=== PATIENT | male | born 1995 | race Caucasian/White ===

== ENCOUNTER 2020-06-20 10:52 | Emergency (ER) | payer OTHER | END 2020-06-20 12:24 | disposition home or self-care (01) | LOC: M ED 10:52 | DX: S93.402A Sprain of unspecified ligament of left ankle, initial encounter (principal); Y92.832 Beach as the place of occurrence of the external cause; Y93.9 Activity, unspecified; Y99.9 Unspecified external cause status ==

== ENCOUNTER 2021-02-21 11:54 | Emergency (ER) | payer OTHER ==
[~2021-02-21] VITALS: Ht 175.3 cm; Wt 89.4 kg
[2021-02-21] MEDS ORDERED: IBUP-1720 PO (12:19)
--- NOTE | 2021-02-21 13:50 | REP ---
INDICATION: pain/fell 8 weeks ago COMPARISON: None. TECHNIQUE: AP, lateral, bilateral oblique views right wrist. FINDINGS: The carpal bones, surrounding osseous structures, soft tissues, and joint spaces are normal. There is no evidence for acute fracture or dislocation. No subcutaneous emphysema or radiodense foreign body. IMPRESSION: No obvious acute fracture or dislocation. <Electronically signed by Olaf Kim > 02/21/21 [id number]
[2021-02-21] MEDS ORDERED: PRED20TA PO (13:56)
[2021-02-21] MEDS ORDERED: CYCL5TAB PO (13:56)
[2021-02-21 14:15] VITALS: BP 147/82
== END 2021-02-21 14:18 | disposition home or self-care (01) ==
LOC: M ED 11:54
DX: M67.833 Other specified disorders of tendon, right wrist (principal); S39.012A Strain of muscle, fascia and tendon of lower back, initial encounter; X58.XXXA Exposure to other specified factors, initial encounter; Y92.9 Unspecified place or not applicable; Y93.9 Activity, unspecified; Y99.9 Unspecified external cause status

== ENCOUNTER → 2021-06-21 | Outpatient (REF) | payer OTHER ==
[~2021-06-21] MED LIST: CYCL5TAB PO; IBUP-1720 PO; PRED20TA PO
[2021-06-21 10:06] LABS: SEMEN APPEARANCE OPAQUE (OPAQUE)
[2021-06-21 10:07] LABS: SEMEN VISCOSITY LIQUID (LIQUID); SEMEN VOLUME 4.6 ml (2.0-5.0); SPERM CONCENTRATION 12.6 M/ml (>=15.0); WBC CONCENTRATION <=1 M/ml (<=1 M/ml)
== END ==
LOC: M LAB REF 10:04
PROVIDERS: ATTEND Obstetrics & Gynecology
DX: N46.8 Other male infertility (principal)

== ENCOUNTER → 2021-09-19 | Outpatient (CLI) | payer OTHER ==
--- NOTE | 2021-09-19 15:39 | REP ---
INDICATION: Palpable mass just inferior to the nipple. History of bilateral retroareolar surgical excision of tissue. Patient does not know the nature of the tissue removed. COMPARISON: None. TECHNIQUE: Multiple ultrasound images of the right breast were obtained. Comparison images of the left breast were obtained. FINDINGS: In the area of the palpable abnormality there is a oval heterogeneous mass with a relatively circumscribed margin, measuring 2.5 x 2.0 x 0.9 cm. There are no posterior features. The masses subcutaneous with mild mass effect on the underlying muscle. IMPRESSION: Mass of indeterminate etiology in the retroareolar area of the right breast just inferior to the nipple corresponding to the palpable abnormality. This does not have a typical appearance of gynecomastia and is possibly postsurgical scarring and/or packing in the surgical site. Breast hamartoma is a less likely consideration. <Electronically signed by Jonathan Burroughs > 09/19/21 [id number]
== END ==
LOC: M RAD 11:42
DX: R22.40 Localized swelling, mass and lump, unspecified lower limb (principal)